=== PATIENT | male | born 1975 | race American Indian/Alaskan Native ===

== ENCOUNTER 2016-12-07 08:53 | Outpatient (CLI) | payer OTHER ==
--- NOTE | 2016-12-07 12:22 | Magnetic Resonance Report ---
MR LOWER EXTREMITY JOINT RIGHT WITHOUT CONTRAST HISTORY: Right knee mass. TECHNIQUE: Multisequence, multiplanar MRI without contrast. FINDINGS: The subcutaneous infrapatellar bursa is enlarged and contains slightly heterogeneous fluid. This bursa measures 3.2 x 1.8 x 3.6 cm. No additional bursal fluid is appreciated. This presumably represents the right mass mentioned in exam history. No additional mass. The medial meniscus is abnormal. A complex tear is identified at the junction of the body and posterior horn of the medial meniscus. No para meniscal cyst. The lateral meniscus is normal. The ACL, PCL, MCL, LCL complex and extensor complex are intact. No ligamentous injury is appreciated. The bone marrow signal is within normal limits. No evidence for fracture or bone lesion. Moderate joint space narrowing, cartilage loss and marginal spurring is noted in the medial compartment. The lateral compartment is within normal limits. A focal retropatellar cartilage defect is suspected near the inferior apex of the patella. This is best demonstrated on axial proton density fat sat image 25. Trace to small joint effusion is noted. IMPRESSION: Subcutaneous infrapatellar bursitis. Complex tear in the body and posterior horn of the medial meniscus. Moderate osteoarthritic changes in the medial compartment of the knee. Retropatellar cartilage defect. Small joint effusion.
== END 2016-12-07 08:54 | disposition home or self-care (01) ==
LOC: MRI 08:53
PROVIDERS: ATTEND Internal Medicine
DX: S83.231A Complex tear of medial meniscus, current injury, right knee, initial encounter (principal); M71.561 Other bursitis, not elsewhere classified, right knee; M17.11 Unilateral primary osteoarthritis, right knee; X58.XXXA Exposure to other specified factors, initial encounter; Y93.89 Activity, other specified; Y92.89 Other specified places as the place of occurrence of the external cause; Y99.8 Other external cause status
CPT/HCPCS: 73721